=== PATIENT | female | born 2000 | race Caucasian/White ===

== ENCOUNTER 2022-10-19 15:01 | Emergency (ER) | payer MEDICAID ==
[~2022-10-19] VITALS: Ht 152.4 cm; Wt 46.0 kg
[2022-10-19 15:14] VITALS: BP 118/70; PULSE 80; RESP 16; TEMP 98.4; O2SAT 100
[2022-10-19] MEDS ORDERED: IBUPROFEN 400MG TABLET PO ONE (15:15)
[2022-10-19] MEDS ORDERED: TOPUD PO (15:59)
== END 2022-10-19 17:35 | disposition home or self-care (01) ==
LOC: ER 15:01
DX: M79.10 Myalgia, unspecified site (principal); R51.9 Headache, unspecified; M25.511 Pain in right shoulder; M54.50 Low back pain, unspecified
CPT/HCPCS: 73030; 99284